=== PATIENT | male | born 1995 | race Caucasian/White ===

== ENCOUNTER 2020-02-19 23:19 | Emergency (ER) | payer OTHER ==
[~2020-02-19] VITALS: Ht 182.9 cm; Wt 75.3 kg
[2020-02-19 23:29] VITALS: Ht 182.9 cm; Wt 75.3 kg
[2020-02-20 01:30] VITALS: BP 126/90
== END 2020-02-20 01:30 | disposition home or self-care (01) ==
LOC: ED 23:19
DX: R07.89 Other chest pain (principal); Z20.828 Contact with and (suspected) exposure to other viral communicable diseases
CPT/HCPCS: U0003